=== PATIENT | male | born 1955 | race Caucasian/White ===

== ENCOUNTER 2021-11-21 06:01 | Inpatient (IN) | payer SELFPAY ==
[~2021-11-21] VITALS: Ht 175.3 cm; Wt 87.9 kg
--- NOTE | 2021-11-21 06:28 | ED Abdominal Pain ---
General Stated Complaint: KIDNEY INFECTION,SOB Source of Information: Patient Exam Limitations: No Limitations History of Present Illness Date Seen by Provider: November 21, 2021 Time Seen by Provider: 06:05 Initial Comments 66-year-old male with no pertinent past medical history coming in due to lower abdominal distention, pain, and difficulty urinating. He says he believes he has a kidney infection. This all started about 11 days ago, he presented to an urgent care on the , was diagnosed with a UTI and started on antibiotics. He says that helped for a few days, but that now it is worsening. He says his abdomen feels so full that he has a difficult time breathing. Denies any fever, chest pain, cough, weakness, numbness, rash, headache, vision changes, or any other concerns. He does endorse some dysuria and incontinence which is new for him. Had a normal bowel movement about a day ago and denies diarrhea. Allergies and Home Medications Allergies Coded Allergies: No Known Drug Allergies (Unverified , 11/21/21) Patient Home Medication List Home Medication List Reviewed: Yes Review of Systems Review of Systems Constitutional: No chills, No fever EENTM: No Blurred Vision Respiratory: Denies Cough Cardiovascular: Denies Chest Pain Gastrointestinal: Abdomen Distended; Denies Diarrhea, Denies Nausea, Denies Vomiting Genitourinary: Frequency, Incontinence, Pain Musculoskeletal: no symptoms reported Skin: no symptoms reported Psychiatric/Neurological: No Symptoms Reported Endocrine: No Symptoms Reported Hematologic/Lymphatic: No Symptoms Reported All Other Systems Reviewed Negative Unless Noted: Yes Past Udrxonz-Dqmjhx-Pkvbcx Hx Patient Social History Tobacco Use?: No Substance use?: No Alcohol Use?: Yes Alcohol type: Beer Alcohol Frequency: Once in a while Past Medical History Surgeries: No Physical Exam Vital Signs Vital Signs - First Documented 11/21/21 06:10 Temp 36.2 Pulse 137 Resp 26 B/P (MAP) 127/84 (98) Pulse Ox 95 Capillary Refill : Height/Weight/BMI Height: '" Weight: lbs. oz. kg; BMI Method: General Appearance: WD/WN, mild distress HEENT: PERRL/EOMI, normal ENT inspection, pharynx normal Neck: non-tender, full range of motion, supple, normal inspection Respiratory: chest non-tender, lungs clear, normal breath sounds, no respiratory distress, no accessory muscle use Cardiovascular: no murmur, tachycardia, other (1+ lower extremity edema) Gastrointestinal: normal bowel sounds; No guarding, No rebound; tenderness, other (fullness in the lower abdomen) Extremities: normal range of motion, non-tender, normal inspection, no calf tenderness, normal capillary refill, pedal edema Back: normal inspection, no CVA tenderness, no vertebral tenderness Neurologic/Psychiatric: no motor/sensory deficits, alert, normal mood/affect Skin: normal color, warm/dry Lymphatic: no adenopathy Focused Exam Lactate Level 11/21/21 06:30: Lactic Acid Level 4.75*H Lactic Acid Level Laboratory Tests Test 11/21/21 06:30 Lactic Acid Level 4.75 MMOL/L (0.50-2.00) *H Progress/Results/Core Measures Results/Orders Lab Results Laboratory Tests Test 11/21/21 06:30 11/21/21 06:35 Range/Units White Blood Count 31.8 *H 4.3-11.0 10^3/uL Red Blood Count 4.95 4.30-5.52 10^6/uL Hemoglobin 14.9 13.3-17.7 g/dL Hematocrit 40 40-54 % Mean Corpuscular Volume 82 80-99 fL Mean Corpuscular Hemoglobin 30 25-34 pg Mean Corpuscular Hemoglobin Concent 37 H 32-36 g/dL Red Cell Distribution Width 12.7 10.0-14.5 % Platelet Count 38 *L 130-400 10^3/uL Mean Platelet Volume 10.6 9.0-12.2 fL Immature Granulocyte % (Auto) 6 % Neutrophils (%) (Auto) 89 H 42-75 % Lymphocytes (%) (Auto) 2 L 12-44 % Monocytes (%) (Auto) 3 0-12 % Eosinophils (%) (Auto) 0 0-10 % Basophils (%) (Auto) 1 0-10 % Neutrophils # (Auto) 28.2 H 1.8-7.8 10^3/uL Lymphocytes # (Auto) 0.5 L 1.0-4.0 10^3/uL Monocytes # (Auto) 0.9 0.0-1.0 10^3/uL Eosinophils # (Auto) 0.0 0.0-0.3 10^3/uL Basophils # (Auto) 0.2 H 0.0-0.1 10^3/uL Immature Granulocyte # (Auto) 2.0 H 0.0-0.1 10^3/uL Neutrophils % (Manual) 70 % Lymphocytes % (Manual) 1 % Monocytes % (Manual) 2 % Eosinophils % (Manual) 0 % Basophils % (Manual) 0 % Metamyelocytes % 1 % Band Neutrophils 26 % Blood Morphology Comment NORMAL Prothrombin Time 16.4 H 12.2-14.7 SEC INR Comment 1.3 0.8-1.4 Activated Partial Thromboplast Time 39 H 24-35 SEC Sodium Level 129 L 135-145 MMOL/L Potassium Level 4.5 3.6-5.0 MMOL/L Chloride Level 92 L 98-107 MMOL/L Carbon Dioxide Level 10 L 21-32 MMOL/L Anion Gap 27 H 5-14 MMOL/L Blood Urea Nitrogen 131 *H 7-18 MG/DL Creatinine 15.01 H 0.60-1.30 MG/DL Estimat Glomerular Filtration Rate 3 BUN/Creatinine Ratio 8 Glucose Level 157 H 70-105 MG/DL Lactic Acid Level 4.75 *H 0.50-2.00 MMOL/L Calcium Level 7.9 L 8.5-10.1 MG/DL Corrected Calcium 8.5 8.5-10.1 MG/DL Total Bilirubin 1.1 H 0.1-1.0 MG/DL Aspartate Amino Transf (AST/SGOT) 17 5-34 U/L Alanine Aminotransferase (ALT/SGPT) 23 0-55 U/L Alkaline Phosphatase 198 H 40-136 U/L Total Protein 6.6 6.4-8.2 GM/DL Albumin 3.3 3.2-4.5 GM/DL Urine Color ORANGE Urine Clarity CLOUDY Urine pH 5.5 5-9 Urine Specific [place] 1.015 L 1.016-1.022 Urine Protein TRACE H NEGATIVE Urine Glucose (UA) NEGATIVE NEGATIVE Urine Ketones NEGATIVE NEGATIVE Urine Nitrite NEGATIVE NEGATIVE Urine Bilirubin NEGATIVE NEGATIVE Urine Urobilinogen 0.2 < = 1.0 MG/DL Urine Leukocyte Esterase 3+ H NEGATIVE Urine RBC (Auto) 3+ H NEGATIVE Urine RBC 10-25 H /HPF Urine WBC TNTC H /HPF Urine Squamous Epithelial Cells RARE /HPF Urine Crystals NONE /LPF Urine Bacteria LARGE H /HPF Urine Casts NONE /LPF Urine Mucus NEGATIVE /LPF Urine Culture Indicated CULTURE PENDING My Orders Orders - АННА VILLARREAL MD Cbc With Automated Diff (11/21/21 06:24) Comprehensive Metabolic Panel (11/21/21 06:24) Blood Culture (11/21/21 06:24) Urinalysis (11/21/21 06:24) Urine Culture (11/21/21 06:24) Protime With Inr (11/21/21 06:24) Partial Thromboplastin Time (11/21/21 06:24) Chest 1 View, Ap/Pa Only (11/21/21 06:24) Ed Iv/Invasive Line Start (11/21/21 06:24) Ed Iv/Invasive Line Start (11/21/21 06:24) Ekg Tracing (11/21/21 06:24) Vital Signs Adult Sepsis Patie Q15M (11/21/21 06:24) O2 (11/21/21 06:24) Remove Rings In Anticipation O (11/21/21 06:24) Lactic Acid Analyzer (11/21/21 06:24) Ns Iv 1000 Ml (Sodium Chloride 0.9%) (11/21/21 06:30) Manual Differential (11/21/21 06:30) Ns Iv 1000 Ml (Sodium Chloride 0.9%) (11/21/21 07:15) Ceftriaxone 1 Gm Pre-Mix (Rocephin 1 Gm (11/21/21 07:15) Arterial Blood Gas (11/21/21 07:27) Medications Given in ED Current Medications Medications Dose Ordered Sig/Richard Route Start Time Stop Time Status Last Admin Dose Admin Ceftriaxone Sodium/Dextrose 50 ml @ 100 mls/hr ONCE ONCE IV 11/21/21 07:15 11/21/21 07:44 DC 11/21/21 07:31 100 MLS/HR Sodium Chloride 2,523 ml @ 2,523 mls/hr ONCE ONCE IV 11/21/21 07:15 11/21/21 08:14 11/21/21 07:36 2,523 MLS/HR Vital Signs/I&O 11/21/21 06:10 Temp 36.2 Pulse 137 Resp 26 B/P (MAP) 127/84 (98) Pulse Ox 95 Progress Progress Note : Progress Note 66-year-old male with above history coming in due to lower abdominal pain with distention. ABCs were intact and vitals were stable on presentation except he was tachycardic to the 120s to 130s. Physical exam for like a full bladder. I did a [id number] ultrasound and it appeared he had roughly 2 L in his b ladder. We placed a Mendoza with good output and near complete resolution of his abdominal pain. The urine did come out cloudy and was concerning for infection. Lab significant for white count almost of 32, lactate around 4.7, creatinine around 15, normal potassium, bicarb of 10, low sodium and low platelets. Clinically he has pyelonephritis with severe sepsis. He will be admitted to the intensive care unit after discussing the case with Dr. Reynoso. He is having a good amount of urine out and we will replace that one-to-one with fluid going in. I have a high suspicion his creatinine will correct quickly given he had likely BPH causing the backup of urine causing all of this. Initial ECG Impression Date: November 21, 2021 Initial ECG Impression Time: 06:47 Initial ECG Rate: 127 Initial ECG Rhythm: S.Tach Comment Narrow QRS, left axis deviation with a left anterior fascicular block, no significant ST changes or T wave abnormalities Departure Impression Primary Impression: Pyelonephritis Additional Impressions: Severe sepsis REGINE (acute kidney injury) Hyponatremia Disposition: ADMITTED INPATIENT Condition: Stable Admissions Decision to Admit Reason: Admit from ER (General) Decision to Admit/Date: November 21, 2021 Time/Decision to Admit Time: 07:20 Departure-Patient Inst. Referrals: NO,LOCAL PHYSICIAN (PCP/Family) Primary Care Physician АННА VILLARREAL MD November 21, 2021 06:28
[2021-11-21] MEDS ORDERED: NS IV 1000 ML 1,000 ML IV SCH (06:30)
[2021-11-21 06:38] LABS: BILIRUBIN,URINE NEGATIVE (NEGATIVE); CLARITY,URINE CLOUDY; COLOR,URINE ORANGE; GLUCOSE, URINE (UA) NEGATIVE (NEGATIVE); KETONES,URINE NEGATIVE (NEGATIVE); LEUKOCYTE ESTERASE ,URINE 3+ (NEGATIVE); NITRITE,URINE NEGATIVE (NEGATIVE); PH,URINE 5.5 (5-9); PROTEIN,URINE TRACE (NEGATIVE)
[2021-11-21 06:55] LABS: BACTERIA,URINE LARGE /HPF; SQUAMOUS EPITHELIAL CELL,UR RARE /HPF; WBC,URINE TNTC /HPF
[2021-11-21 06:55] LABS: ALBUMIN 3.3 GM/DL (3.2-4.5)
[2021-11-21 06:56] LABS: BASOPHILS # (AUTO) 0.2 10^3/uL (0.0-0.1); BASOPHILS % (AUTO) 1 % (0-10); EOSINOPHILS % (AUTO) 0 % (0-10); HEMATOCRIT 40 % (40-54); HEMOGLOBIN 14.9 g/dL (13.3-17.7); INR 1.3 (0.8-1.4); LYMPHOCYTES # (AUTO) 0.5 10^3/uL (1.0-4.0); LYMPHOCYTES % (AUTO) 2 % (12-44); MEAN CORPUSCULAR HEMOGLOBIN 30 pg (25-34); MEAN CORPUSCULAR HGB CONC 37 g/dL (32-36); MEAN CORPUSCULAR VOLUME 82 fL (80-99); MEAN PLATELET VOLUME 10.6 fL (9.0-12.2); MONOCYTES # (AUTO) 0.9 10^3/uL (0.0-1.0); MONOCYTES % (AUTO) 3 % (0-12); NEUTROPHILS # (AUTO) 28.2 10^3/uL (1.8-7.8); NEUTROPHILS % (AUTO) 89 % (42-75); POTASSIUM 4.5 MMOL/L (3.6-5.0); PROTHROMBIN TIME PATIENT 16.4 SEC (12.2-14.7)
[2021-11-21 06:57] LABS: CALCIUM 7.9 MG/DL (8.5-10.1)
[2021-11-21 06:58] LABS: PLATELET COUNT 38 10^3/uL (130-400); TOTAL PROTEIN 6.6 GM/DL (6.4-8.2); WHITE BLOOD COUNT 31.8 10^3/uL (4.3-11.0)
[2021-11-21 07:00] LABS: BILIRUBIN,TOTAL 1.1 MG/DL (0.1-1.0)
[2021-11-21 07:02] LABS: CREATININE SERUM 15.01 MG/DL (0.60-1.30)
[2021-11-21] MEDS ORDERED: cefTRIAXone 1 GM PRE-MIX 50 ML IV ONE (07:15)
[2021-11-21] MEDS ORDERED: NS IV ONE (07:15)
[2021-11-21 07:17] LABS: BAND NEUTROPHILS 26 %; BASOPHILS % (MANUAL) 0 %; EOSINOPHILS % (MANUAL) 0 %; LYMPHOCYTES % (MANUAL) 1 %; METAMYELOCYTES % 1 %; MONOCYTES % (MANUAL) 2 %; NEUTROPHILS % (MANUAL) 70 %; RBC MORPH NORMAL
--- NOTE | 2021-11-21 08:09 | Diagnostic Imaging Report ---
Indication: Shortness of breath Portable chest 11:07 AM Heart size and pulmonary vascularity are normal. Lungs are clear. There are no effusions or pneumothoraces. IMPRESSION: No acute abnormalities in the chest Dictated by: Dictated on workstation # [id number]
--- NOTE | 2021-11-21 08:14 | History & Physical-Hospitalist ---
History of Present Illness HPI/Chief Complaint CC: Acute kidney injury HPI: This is a 66 yr old male who has no physician for the past 30 years. He presented with abdominal pain and found to have urinary retention and creatinine of 15. Potassium was good. He did have metabolic acidosis and criteria was met for severe sepsis due to pyelonephritis. He was placed on Rocephin and aggressive IV fluid with D5W with 3 amps of bicarb after I spoke with Dr. Ramos nephrology. Urinary output will be monitored with batres catheter. BMP will be checked every 4 hours. I will consult cardiology due to trigeminy on telemetry. Check echocardiogram. Renal ultrasound ordered. eICU appreciated. Source: patient Exam Limitations: no limitations Date Seen 11/21/21 Time Seen by a Provider: 10:00 Attending Physician No,Local Physician PCP Admitting Physician: Nadya Arredondo DO Attending Physician: Nadya Arredondo DO Referring Physician Date of Admission November 21, 2021 at 07:50 Home Medications & Allergies Home Medications Reviewed patient Home Medication Reconciliation performed by pharmacy medication reconciliations urinalysis technician and/or nursing. Patients Allergies have been reviewed. Allergies Allergies Coded Allergies No Known Drug Allergies (Unverified11/21/21) Past Trwhmpx-Erdwyi-Lrvigz Hx Patient Social History Marrital Status: single Employed/Student: unemployed Tobacco Use?: No Use of E-Cig and/or Vaping dev: No Substance use?: No Alcohol Use?: Yes Alcohol type: Beer Alcohol Frequency: Couple times a week Pt feels they are or have been: No Current Status Primary Language: Yi Preferred Spoken Language: Yi Review of Systems Constitutional: see HPI, malaise, weakness EENTM: no symptoms reported Respiratory: no symptoms reported Cardiovascular: no symptoms reported Gastrointestinal: abdominal pain Genitourinary: decreased output Musculoskeletal: no symptoms reported Skin: no symptoms reported Psychiatric/Neurological: No Symptoms Reported All Other Systems Reviewed Negative Unless Noted: Yes Physical Exam Physical Exam Vital Signs Vital Signs - First Documented 11/21/21 11/21/21 11/21/21 06:10 08:50 20:00 Temp 36.2 Pulse 137 Resp 26 B/P (MAP) 127/84 (98) Pulse Ox 95 O2 Delivery Room Air O2 Flow Rate 2.00 Capillary Refill : Less Than 3 Seconds Height, Weight, BMI Height: '" Weight: lbs. oz. kg; 27.00 BMI Method: General Appearance: No Apparent Distress, Anxious, Chronically ill Eyes: Right Eye Normal Inspection, Right Eye PERRL HEENT: PERRL/EOMI, Normal ENT Inspection, Pharynx Normal, Moist Mucous Membranes Neck: Full Range of Motion, Normal Inspection, Non Tender Respiratory: Chest Non Tender, Lungs Clear, Normal Breath Sounds, No Accessory Muscle Use, No Respiratory Distress Cardiovascular: Regular Rate, Rhythm, No Edema, No Gallop, No JVD, No Murmur, Normal Peripheral Pulses Gastrointestinal: Normal Bowel Sounds, No Organomegaly, No Pulsatile Mass, Non Tender, Soft Back: Normal Inspection, No CVA Tenderness, No Vertebral Tenderness Extremity: Normal Capillary Refill, Normal Inspection, Normal Range of Motion, Non Tender, No Calf Tenderness, No Pedal Edema Neurologic/Psychiatric: Alert, Oriented x3, No Motor/Sensory Deficits, Normal Mood/Affect Skin: Normal Color, Warm/Dry Lymphatic: No Adenopathy Results Results/Procedures Labs Laboratory Tests 11/21/21 06:30 11/21/21 11:40 11/21/21 20:10 Patient resulted labs reviewed. Assessment/Plan Admission Diagnosis Assessment: Acute kidney injury Obstructive uropathy status post Batres catheter removing 2000 cc of urine Acute pyelonephritis Severe sepsis Metabolic acidosis PVCs on telemetry consulting cardiology and obtaining echo Thrombocytopenia Leukocytosis Mild coagulopathy INR 1.3 Plan: D5W with 3 A of bicarb Aggressive fluid resuscitation Batres catheter Echo Cardiology Monitor creatinine closely Monitor potassium Admission Status: Inpatient Order (span 2 midnights) Reason for Inpatient Admission: Acute kidney injury with severe sepsis Diagnosis/Problems Diagnosis/Problems (1) Acute kidney injury (2) Thrombocytopenia (3) Ventricular premature complexes (4) Pyelonephritis Status: Acute (5) Severe sepsis Status: Acute (6) Hyponatremia Status: Acute NADYA ARREDONDO DO November 21, 2021 08:14
[2021-11-21 08:50] VITALS: BP 130/74
[2021-11-21] MEDS ORDERED: MELATONIN 3 MG TABLET PO PRN (09:00)
[2021-11-21] MEDS ORDERED: ONDANSETRON 4 MG (ZOFRAN) ORAL DISSOLVE TAB PO PRN (09:00)
[2021-11-21] MEDS ORDERED: diphenhydrAMINE 50 MG/ML INJ (BENADRYL) IVP PRN (09:00)
[2021-11-21] MEDS ORDERED: cefTRIAXone 1 GM PRE-MIX 50 ML IV SCH (09:00)
[2021-11-21] MEDS ORDERED: D5 NS IV SCH ×2 (09:00→09:45)
[2021-11-21] MEDS ORDERED: ONDANSETRON 4 MG/2 ML (SDV) Z0FRAN IV PRN (09:00)
[2021-11-21] MEDS ORDERED: BISACODYL 10 MG SUPP (DULCOLAX) PR PRN (09:00)
[2021-11-21] MEDS ORDERED: HYDROmorphone 2 MG/ML VIAL (DILAUDID) IVP PRN (09:00)
[2021-11-21] MEDS ORDERED: ACETAMINOPHEN 325 MG TABLET PO PRN (09:00)
[2021-11-21] MEDS ORDERED: MILK OF MAGNESIA 400 MG/5 ML 30 ML UDC PO PRN (09:00)
[2021-11-21] MEDS ORDERED: polyethylene glycoL POWDER 17 GM (MIRALAX) PACK PO PRN (09:00)
[2021-11-21] MEDS ORDERED: diphenhydrAMINE 25 MG TAB (BENADRYL) PO PRN (09:00)
[2021-11-21] MEDS ORDERED: CALCIUM CARBONATE 500 MG (TUMS) TAB.CHEW PO PRN (09:00)
[2021-11-21] MEDS ORDERED: ANTACID SUSP 30 ML UDC (MYLANTA) PO PRN (09:00)
[2021-11-21] MEDS ORDERED: SODIUM BICARBONATE IV SCH ×2 (09:00→09:45)
[2021-11-21] MEDS ORDERED: ALPRAZolam 0.25 MG (XANAX) TAB PO PRN (09:00)
--- NOTE | 2021-11-21 10:15 | Tele-ICU Consult ---
History of Present Illness History of Present Illness Date Seen by Provider: November 21, 2021 Time Seen by Provider: 10:15 Date of Admission (Tele-ICU Physician , consultation) Available chart/ vitals / labs / Images reviewed H&P is from ER notes Patient's information available about PMH, Shx, Fhx allergy reviewed in EMR. ROS as per chart and RN report Now in ICU, hemodynamically stable , sitting in bed having lunch Video assessment done using teleICU camera, rest of exam as per RN Discussed with RN. A/P Acute failure - ( obstructive component - 2 L in bladder befor batres ) - other etiology - REGINE / ?CKD - making urine - follow - BMP q 4 h - hydration - US renal - cont ABX - PCP in touch with nephrology in other facility - for possible transfer if needed Batres: + VTE Prophylaxis: SCD Stress Ulcer Prophylaxis: na Plans in collaboration with bedside consultants and IM MDs. Discussed with RN to reach out if any questions or concerns A total of 22 minutes of critical care time was devoted to this patient today, required to treat and/or prevent further deterioration of critical care condition ( as above ) . Allergies and Home Medications Allergies Coded Allergies: No Known Drug Allergies (Unverified , 11/21/21) Past Medical/Social/Family Hx Patient Social History Tobacco Use?: No Use of E-Cig and/or Vaping dev: No Substance use?: No Alcohol Use?: Yes Alcohol type: Beer Alcohol Frequency: Couple times a week Pt stated abuse/neglect: No Immunizations Up To Date Influenza Vaccine Up-to-Date: No; Not Current Current Status Advance Directives: No Communicates: Verbally Primary Language: Indian Preferred Spoken Language: Indian Is interpretation needed?: No Sensory deficits: Vision impairment Implanted or Applied Medical D: None Review of Systems Constitutional: see HPI Focused Exam Lactate Level 11/21/21 06:30: Lactic Acid Level 4.75*H 11/21/21 09:15: Lactic Acid Level 2.45*H Height, Weight, BMI Height: '" Weight: lbs. oz. kg; 27.33 BMI Method: Lactic Acid Level Laboratory Tests Test 11/21/21 06:30 11/21/21 09:15 Lactic Acid Level 4.75 MMOL/L (0.50-2.00) *H 2.45 MMOL/L (0.50-2.00) *H Exam Exam Patient acknowledged, consented, and participated in this virtual visit which was conducted using real time audio/video Vital Signs Date Time Temp Pulse Resp B/P (MAP) Pulse Ox O2 Delivery O2 Flow Rate FiO2 11/21/21 08:59 36.7 113 24 138/68 95 Room Air 11/21/21 08:50 113 22 130/74 96 Room Air 11/21/21 06:10 36.2 137 26 127/84 (98) 95 Height & Weight Height: '" Weight: lbs. oz. kg; 27.33 BMI Method: General Appearance: WD/WN Capillary Refill: Less Than 3 Seconds Gastrointestinal: normal bowel sounds; No guarding, No rebound; tenderness, other (fullness in the lower abdomen) Results Lab Laboratory Tests 11/21/21 06:30 Assessment/Plan Assessment/Plan ` DOLORES MCNEILL MD November 21, 2021 10:15
[2021-11-21] MEDS ORDERED: FAMO20TA5 PO (10:17)
[2021-11-21] MEDS: DOCUSATE SODIUM 100 MG (COLACE) CAP PO SCH ×2 (11:42→20:00)
[2021-11-21] MEDS: SENNOSIDES 8.6 MG (SENOKOT) TAB PO SCH ×2 (11:42→20:00)
--- NOTE | 2021-11-21 11:42 | Diagnostic Imaging Report ---
PROCEDURE: US Renal Bilateral. TECHNIQUE: Multiple real-time grayscale images were obtained over the kidneys in various projections bilaterally. INDICATION: Acute renal failure. Right kidney measures 10.7, the left 10.9 cm. Both kidneys showed normal volume, cortical thickness and parenchymal echotexture. Urinary bladder was nearly empty. No hydronephrosis. IMPRESSION: Normal sonographic appearance of the unobstructed kidneys. Nonfocal small volume bladder at the time of study. Dictated by: Dictated on workstation # [id number]
[2021-11-21 12:01] LABS: POTASSIUM 3.2 MMOL/L (3.6-5.0)
[2021-11-21 12:07] LABS: CREATININE SERUM 8.5 MG/DL (0.60-1.30)
[2021-11-21] MEDS: SODIUM BICARBONATE 8.4% SYR 150 MEQ in D5W 1000 ML IV SOLUTION 1,000 ML IV SCH ×2 (13:24→21:41)
--- NOTE | 2021-11-21 15:53 | Consultation-Cardiology ---
HPI-Cardiology Cardiology Consultation: Date of Consultation 11/21/21 Date of Admission 11/21/21 Attending Physician Susan,Local Physician Admitting Physician Admitting Physician: Nadya Reynoso DO Attending Physician: Nadya Reynoso DO Consulting Physician AURE FIGUEROA JR, MD HPI: Time Seen by a Provider: 15:53 Chief Complaint: REASON FOR CONSULTATION: Premature ventricular complexes. I had the pleasure of seeing Jason in the intensive care unit at [facility] in [place], [place] today. He has not seen a physician since the . For the past couple of years he has had some trouble urinating. He thought that his prostate might be enlarged. However, he did not seek medical attention. He was planning to wait until he turns 66 to get Medicare and then he would look for a doctor to check his prostate. Then about 10 days ago he started developing some lower abdominal cramping. He was having more trouble urinating. He went to urgent care and was diagnosed with a urinary tract infection and given some oral antibiotics. For the first few days he felt as though the symptoms were improving. However, then for the past couple of days, he has been having more trouble urinating and he was also feeling as though his throat was closing up on him. He was having difficulty swallowing. He was having trouble eating and drinking liquids due to this feeling in his throat. Then his urine output went down. This morning he became concerned and came to the emergency room for further evaluation. He was found to be in acute renal failure and was admitted to the intensive care unit. He denies any chest discomfort, dyspnea, paroxysmal nocturnal dyspnea or orthopnea. Sometimes he will get palpitations with a sensation of fast heartbeats but he feels as though this might be related to feeling anxious at times. He denies lightheadedness, syncope, or ankle edema. When he was admitted to the intensive care unit, he has some premature ventricular complexes and a cardiology consultation was requested. Certain portions of this document may have been dictated utilizing voice recognition technology. Inherent to this technology, typographical and grammatical errors may exist. As much as I am diligent to identify and correct these mistakes, some errors may remain in the document. Review of Systems-Cardiology Review of Systems Other comments Review of 10 organ systems is as per the history of present illness, otherwise negative. All Other Systems Reviewed Negative Unless Noted: Yes [id number] Hx Patient Social History Smoking Status: Never a Smoker Have you traveled recently?: No Alcohol Use?: Yes Pt feels they are or have been: No Past Medical History PMH As described under Assessment. Family Medical History Family Medical History: The patient does not know of any family history of premature coronary artery disease in first-degree relatives. Allergies and Home Medications Allergies Coded Allergies: No Known Drug Allergies (Unverified , 11/21/21) Patient Home Medication List Home Medication List Reviewed: Yes Famotidine (Famotidine) 20 Mg Tablet, 20 MG PO HS, (Reported) Entered as Reported by: JACE SALEH on 11/21/21 1017 Last Action: Continued Exam Vital Signs Vital Signs Date Time Temp Pulse Resp B/P (MAP) Pulse Ox O2 Delivery O2 Flow Rate FiO2 11/21/21 15:00 115 13 104/68 94 Room Air 11/21/21 08:59 36.7 Physical Exam General: Alert. No acute distress. Well nourished and appears stated age. Eye: Extraocular movements are intact. Conjunctivae are clear. There are no xanthelasma. HENT: Normocephalic. Atraumatic. Carotid pulsations 2/2 without bruits. Neck: Jugular venous pressure does not appear elevated. No thyromegaly appreciated. Respiratory: Lungs have some scattered rhonchi posteriorly. Respirations are non-labored. Breath sounds are equal. Symmetrical chest wall expansion. Cardiovascular: Normal rate. Regular rhythm. No murmur. No gallop. Point of maximal impulse is not appear displaced. Good pulses equal in all extremities. No edema. Gastrointestinal: Soft. Normal bowel sounds. Skin: Skin turgor is normal. There is no pallor. Musculoskeletal: No kyphosis or scoliosis appreciated. Neurologic: Alert and oriented to person, place, time. Cranial nerves 3-12 appear grossly intact. The patient has good motor tone strength in the upper and lower extremities bilaterally. Psychiatric: Cooperative. Appropriate mood & affect. Labs Laboratory Tests Test 11/21/21 06:30 11/21/21 06:35 11/21/21 09:15 11/21/21 11:40 Range/Units White Blood Count 31.8 *H 4.3-11.0 10^3/uL Red Blood Count 4.95 4.30-5.52 10^6/uL Hemoglobin 14.9 13.3-17.7 g/dL Hematocrit 40 40-54 % Mean Corpuscular Volume 82 80-99 fL Mean Corpuscular Hemoglobin 30 25-34 pg Mean Corpuscular Hemoglobin Concent 37 H 32-36 g/dL Red Cell Distribution Width 12.7 10.0-14.5 % Platelet Count 38 *L 130-400 10^3/uL Mean Platelet Volume 10.6 9.0-12.2 fL Immature Granulocyte % (Auto) 6 % Neutrophils (%) (Auto) 89 H 42-75 % Lymphocytes (%) (Auto) 2 L 12-44 % Monocytes (%) (Auto) 3 0-12 % Eosinophils (%) (Auto) 0 0-10 % Basophils (%) (Auto) 1 0-10 % Neutrophils # (Auto) 28.2 H 1.8-7.8 10^3/uL Lymphocytes # (Auto) 0.5 L 1.0-4.0 10^3/uL Monocytes # (Auto) 0.9 0.0-1.0 10^3/uL Eosinophils # (Auto) 0.0 0.0-0.3 10^3/uL Basophils # (Auto) 0.2 H 0.0-0.1 10^3/uL Immature Granulocyte # (Auto) 2.0 H 0.0-0.1 10^3/uL Neutrophils % (Manual) 70 % Lymphocytes % (Manual) 1 % Monocytes % (Manual) 2 % Eosinophils % (Manual) 0 % Basophils % (Manual) 0 % Metamyelocytes % 1 % Band Neutrophils 26 % Blood Morphology Comment NORMAL Prothrombin Time 16.4 H 12.2-14.7 SEC INR Comment 1.3 0.8-1.4 Activated Partial Thromboplast Time 39 H 24-35 SEC Sodium Level 129 L 137 135-145 MMOL/L Potassium Level 4.5 3.2 L 3.6-5.0 MMOL/L Chloride Level 92 L 103 98-107 MMOL/L Carbon Dioxide Level 10 L 14 L 21-32 MMOL/L Anion Gap 27 H 20 H 5-14 MMOL/L Blood Urea Nitrogen 131 *H 108 #*H 7-18 MG/DL Creatinine 15.01 H 8.50 #H 0.60-1.30 MG/DL Estimat Glomerular Filtration Rate 3 6 BUN/Creatinine Ratio 8 13 Glucose Level 157 H 258 H 70-105 MG/DL Lactic Acid Level 4.75 *H 2.45 *H 0.50-2.00 MMOL/L Calcium Level 7.9 L 7.0 L 8.5-10.1 MG/DL Corrected Calcium 8.5 8.5-10.1 MG/DL Total Bilirubin 1.1 H 0.1-1.0 MG/DL Aspartate Amino Transf (AST/SGOT) 17 5-34 U/L Alanine Aminotransferase (ALT/SGPT) 23 0-55 U/L Alkaline Phosphatase 198 H 40-136 U/L Total Protein 6.6 6.4-8.2 GM/DL Albumin 3.3 3.2-4.5 GM/DL Urine Color ORANGE Urine Clarity CLOUDY Urine pH 5.5 5-9 Urine Specific Thornton 1.015 L 1.016-1.022 Urine Protein TRACE H NEGATIVE Urine Glucose (UA) NEGATIVE NEGATIVE Urine Ketones NEGATIVE NEGATIVE Urine Nitrite NEGATIVE NEGATIVE Urine Bilirubin NEGATIVE NEGATIVE Urine Urobilinogen 0.2 < = 1.0 MG/DL Urine Leukocyte Esterase 3+ H NEGATIVE Urine RBC (Auto) 3+ H NEGATIVE Urine RBC 10-25 H /HPF Urine WBC TNTC H /HPF Urine Squamous Epithelial Cells RARE /HPF Urine Crystals NONE /LPF Urine Bacteria LARGE H /HPF Urine Casts NONE /LPF Urine Mucus NEGATIVE /LPF Urine Culture Indicated CULTURE PENDING Radiology ECHOCARDIOGRAM (11/21/2021): 1. This is a technically difficult study due to poor image quality secondary to patient's body habitus. 2. Left ventricle: The cavity size is normal. There is mild concentric hypertrophy. Systolic function is normal. The estimated ejection fraction is 55-60%. There is paradoxical septal motion consistent with an intraventricular conduction delay. The left ventricular diastolic function is indeterminate. 3. Pulmonary arteries: The estimated pulmonary artery systolic pressure is 31 mmHg assuming a right atrial pressure of 5 mmHg. ECG Impression ECG Comment Electrocardiogram from earlier this morning in the emergency room shows sinus tachycardia at 127 bpm with left anterior hemiblock. Diagnosis/Problems Diagnosis/Problems (1) Ventricular premature complexes Assessment & Plan: He is having some rare premature ventricular complexes on telemetry. He has a normal ejection fraction by echocardiogram outlined above. He may be having some ventricular ectopy due to his severe metabolic derangements. I suspect this will resolve as his renal failure resolves. I would just continue him on telemetry for the time being. No additional cardiac testing is indicated at this time. (2) Acute kidney injury Assessment & Plan: It sounds as though he may have developed obstructive uropathy although he does not have any evidence of hydronephrosis on his renal ultrasound. He now has a Mendoza in place and has been making a fair amount of urine with the intravenous fluids he has been receiving. Once he recovers from this acute issue, he will likely need urology consultation. This can probably be done as an outpatient. (3) Thrombocytopenia Assessment & Plan: Etiology unclear. This may be related to sepsis. This will need to be monitored closely. AURE FIGUEROA JR, MD November 21, 2021 15:53
[2021-11-21 17:04] LABS: CHLORIDE 102 MMOL/L (98-107); POTASSIUM 3.2 MMOL/L (3.6-5.0); SODIUM 135 MMOL/L (135-145)
[2021-11-21 17:06] LABS: GLUCOSE 260 MG/DL (70-105); TRIGLYCERIDES 209 MG/DL (<150); VLDL CHOLESTEROL 42 MG/DL (5-40)
[2021-11-21 17:07] LABS: CARBON DIOXIDE 12 MMOL/L (21-32)
[2021-11-21 17:09] LABS: CREATININE SERUM 8.52 MG/DL (0.60-1.30); GFR ESTIMATED 6
[2021-11-21 17:11] LABS: BUN/CREATININE RATIO 13; CHOLESTEROL 96 MG/DL (< 200)
[2021-11-21 17:12] LABS: HDL CHOLESTEROL < 15 MG/DL (40-60)
[2021-11-21 20:42] LABS: POTASSIUM 2.8 MMOL/L (3.6-5.0)
[2021-11-21 20:43] LABS: CALCIUM 7.3 MG/DL (8.5-10.1)
[2021-11-21 20:48] LABS: CREATININE SERUM 4.01 MG/DL (0.60-1.30)
[2021-11-21] MEDS ORDERED: FAMOTIDINE 20 MG (PEPCID) TABLET PO SCH (21:00)
[2021-11-21] MEDS ORDERED: KCL 20 MEQ TAB (K-DUR) PO ONE (21:00)
[2021-11-21] MEDS ORDERED: POTASSIUM CL 10MEQ/50ML IVPB 100 ML IV ONE (21:31)
[2021-11-21] MEDS: POTASSIUM CL 10MEQ/50ML IVPB 50 ML IV SCH ×2 (21:41→22:37)
[2021-11-22] MEDS ORDERED: meTOprolol 5 MG/5 ML (LOPRESSOR) VIAL IV ONE (00:30)
[2021-11-22] MEDS ORDERED: LACTATED RINGERS 1,000 ML IV SCH (00:30)
[2021-11-22] MEDS ORDERED: LACTATED RINGERS 1,000 ML IV ONE ×2 (00:34→00:45)
[2021-11-22] MEDS ORDERED: meTOprolol 5 MG/5 ML (LOPRESSOR) VIAL ONE (00:34)
[2021-11-22 05:48] LABS: EOSINOPHILS % (AUTO) 0 % (0-10); HEMOGLOBIN 11.3 g/dL (13.3-17.7); MONOCYTES % (AUTO) 3 % (0-12)
[2021-11-22 05:50] LABS: BASOPHILS # (AUTO) 0.1 10^3/uL (0.0-0.1); BASOPHILS % (AUTO) 1 % (0-10); HEMATOCRIT 32 % (40-54); LYMPHOCYTES # (AUTO) 0.7 10^3/uL (1.0-4.0); LYMPHOCYTES % (AUTO) 4 % (12-44); MEAN CORPUSCULAR HEMOGLOBIN 30 pg (25-34); MEAN CORPUSCULAR HGB CONC 36 g/dL (32-36); MEAN CORPUSCULAR VOLUME 83 fL (80-99); MEAN PLATELET VOLUME 12.1 fL (9.0-12.2); MONOCYTES # (AUTO) 0.6 10^3/uL (0.0-1.0); NEUTROPHILS % (AUTO) 92 % (42-75); WHITE BLOOD COUNT 17.5 10^3/uL (4.3-11.0)
[2021-11-22 05:57] LABS: PLATELET COUNT 28 10^3/uL (130-400)
[2021-11-22] MEDS: SODIUM BICARBONATE 8.4% SYR 150 MEQ in D5W 1000 ML IV SOLUTION 1,000 ML IV SCH (05:57)
[2021-11-22 06:03] LABS: ALBUMIN 2.3 GM/DL (3.2-4.5)
[2021-11-22 06:04] LABS: POTASSIUM 3.5 MMOL/L (3.6-5.0)
[2021-11-22 06:05] LABS: CALCIUM 7.3 MG/DL (8.5-10.1)
[2021-11-22 06:06] LABS: TOTAL PROTEIN 4.8 GM/DL (6.4-8.2)
[2021-11-22 06:08] LABS: BILIRUBIN,TOTAL 0.6 MG/DL (0.1-1.0)
[2021-11-22 06:09] LABS: PHOSPHORUS 2.6 MG/DL (2.3-4.7)
[2021-11-22 06:10] LABS: CREATININE SERUM 2.01 MG/DL (0.60-1.30)
[2021-11-22 06:12] LABS: MAGNESIUM 2.3 MG/DL (1.6-2.4)
--- NOTE | 2021-11-22 06:42 | Progress Note - Hospitalist ---
Subjective HPI/CC On Admission Date Seen by Provider: November 22, 2021 Time Seen by Provider: 09:30 CC: Acute kidney injury HPI: This is a 66 yr old male who has no physician for the past 30 years. He presented with abdominal pain and found to have urinary retention and creatinine of 15. Potassium was good. He did have metabolic acidosis and criteria was met for severe sepsis due to pyelonephritis. He was placed on Rocephin and aggressive IV fluid with D5W with 3 amps of bicarb after I spoke with Dr. Ramos nephrology. Urinary output will be monitored with batres catheter. BMP will be checked every 4 hours. I will consult cardiology due to trigeminy on telemetry. Check echocardiogram. Renal ultrasound ordered. eICU appreciated. Focused Exam Lactate Level 11/21/21 06:30: Lactic Acid Level 4.75*H 11/21/21 09:15: Lactic Acid Level 2.45*H 11/21/21 20:10: Lactic Acid Level 2.72*H Objective Exam Vital Signs Vital Signs Date Time Temp Pulse Resp B/P (MAP) Pulse Ox O2 Delivery O2 Flow Rate FiO2 11/22/21 09:00 113 35 109/68 94 Nasal Cannula 2.00 11/22/21 07:41 36.6 Capillary Refill : Less Than 3 Seconds Results/Procedures Lab Laboratory Tests 11/21/21 11:40 11/21/21 20:10 11/22/21 05:26 Patient resulted labs reviewed. Diagnosis/Problems Diagnosis/Problems (1) Acute kidney injury (2) Thrombocytopenia (3) Ventricular premature complexes (4) Pyelonephritis Status: Acute (5) Severe sepsis Status: Acute (6) Hyponatremia Status: Acute Clinical Quality Measures DVT/VTE Risk/Contraindication: Contraindications-Pharm: Other *list below* Other: low plts seymour KLEBER ARREDONDO DO November 22, 2021 06:42
--- NOTE | 2021-11-22 08:28 | Tele-ICU Progress Note ---
Progress Note video rounds completed 66 y/o male admitted with sepsis secondary to pyelonephritis and REGINE. Overall much improved. Pulse: 112 BP: 130/74 O2 sat 94 % on NC His BUN and creatinine have markedly improved CO2 is 29 Stop bicarb drip Focused Exam Lactate Level 11/21/21 06:30: Lactic Acid Level 4.75*H 11/21/21 09:15: Lactic Acid Level 2.45*H 11/21/21 20:10: Lactic Acid Level 2.72*H Height, Weight, BMI Height: '" Weight: lbs. oz. kg; 27.33 BMI Method: Labs Laboratory Tests 11/21/21 11:40 11/21/21 20:10 11/22/21 05:26 Results Labs Labs Laboratory Tests 11/21/21 09:15: Lactic Acid Level 2.45*H 11/21/21 11:40: Sodium Level 137, Potassium Level 3.2L, Chloride Level 103, Carbon Dioxide Level 14L, Anion Gap 20H, Blood Urea Nitrogen 108*H, Creatinine 8.50H, Estimat Glomerular Filtration Rate 6, BUN/Creatinine Ratio 13, Glucose Level 258H, Calcium Level 7.0L 11/21/21 20:10: Lactic Acid Level 2.72*H, Sodium Level 139, Potassium Level 2.8L, Chloride Level 99, Carbon Dioxide Level 23, Anion Gap 17H, Blood Urea Nitrogen 69H, Creatinine 4.01#H, Estimat Glomerular Filtration Rate 16, BUN/Creatinine Ratio 17, Glucose Level 212H, Calcium Level 7.3L, Magnesium Level 2.2 11/22/21 05:26: Sodium Level 143, Potassium Level 3.5L, Chloride Level 102, Carbon Dioxide Level 29, Anion Gap 12, Blood Urea Nitrogen 44H, Creatinine 2.01H, Estimat Glomerular Filtration Rate 36, BUN/Creatinine Ratio 22, Glucose Level 178H, Calcium Level 7.3L, Magnesium Level 2.3, White Blood Count 17.5H, Red Blood Count 3.82L, Hemo globin 11.3#L, Hematocrit 32L, Mean Corpuscular Volume 83, Mean Corpuscular Hemoglobin 30, Mean Corpuscular Hemoglobin Concent 36, Red Cell Distribution Width 12.7, Platelet Count 28*L, Mean Platelet Volume 12.1, Immature Granulocyte % (Auto) 0, Neutrophils (%) (Auto) 92H, Lymphocytes (%) (Auto) 4L, Monocytes (%) (Auto) 3, Eosinophils (%) (Auto) 0, Basophils (%) (Auto) 1, Neutrophils # (Auto) 16.0H, Lymphocytes # (Auto) 0.7L, Monocytes # (Auto) 0.6, Eosinophils # (Auto) 0.0, Basophils # (Auto) 0.1, Immature Granulocyte # (Auto) 0.0, Percent Immature Platelet Fraction 5.7, Corrected Calcium 8.7, Phosphorus Level 2.6, Total Bilirubin 0.6, Aspartate Amino Transf (AST/SGOT) 26, Alanine Aminotransferase (ALT/SGPT) 28, Alkaline Phosphatase 99, Total Protein 4.8L, Albumin 2.3L Microbiology 11/21/21 Blood Culture - Preliminary, Resulted Escherichia coli 11/21/21 Urine Culture - Preliminary, Resulted Probable E.coli PILI ORTIZ MD November 22, 2021 08:28
[2021-11-22] MEDS: DOCUSATE SODIUM 100 MG (COLACE) CAP PO SCH (08:46)
[2021-11-22] MEDS: SENNOSIDES 8.6 MG (SENOKOT) TAB PO SCH (08:46)
[2021-11-22] MEDS ORDERED: cefTRIAXone 1 GM PRE-MIX 50 ML IV SCH (09:00)
--- NOTE | 2021-11-22 09:47 | Cardiology Progress Note ---
Progress Note-Cardiology Events since last exam Date Seen by Provider: November 22, 2021 Time Seen by Provider: 09:42 Events since last exam I was initially asked to see him for ventricular ectopy. He remains in the intensive care unit. Last evening he developed atrial fibrillation with a rapid ventricular rate. He was given some intravenous fluids and 1 dose of intravenous metoprolol and after about 1 hour of the atrial fibrillation converted to sinus tachycardia. He denies palpitations with this event. He denies shortness of breath but appears visibly tachypneic while speaking. He denies chest discomfort, syncope, or ankle edema. He is adamant that he wants to go home today. Certain portions of this document may have been dictated utilizing voice recognition technology. Inherent to this technology, typographical and grammatical errors may exist. As much as I am diligent to identify and correct these mistakes, some errors may remain in the document. Vitals Last set of Vitals Signs Vital Signs 11/22/21 11/22/21 07:41 08:00 Temp 36.6 Pulse 113 Resp 27 B/P (MAP) 127/69 Pulse Ox 94 O2 Delivery Nasal Cannula O2 Flow Rate 2.00 Labs Labs Laboratory Tests 11/21/21 11:40 11/21/21 20:10 11/22/21 05:26 Exam Vital Signs Vital Signs Date Time Temp Pulse Resp B/P (MAP) Pulse Ox O2 Delivery O2 Flow Rate FiO2 11/22/21 08:00 113 27 127/69 94 Nasal Cannula 2.00 11/22/21 07:41 36.6 Physical Exam General: Alert. He appears mildly tachypneic. Eye: No xanthelasma. HENT: Normocephalic. Neck: Jugular venous pressure does not appear elevated. Respiratory: Lungs are clear to auscultation. Respirations are non-labored. Breath sounds are equal. Symmetrical chest wall expansion. Cardiovascular: Tachycardia. Regular rhythm. No murmur. No gallop. No edema. Gastrointestinal: Soft. Normal bowel sounds. Skin: Warm. Dry. Neurologic: Alert and oriented to person, place, time. Cranial nerves 3-11 grossly intact. Psychiatric: Cooperative. Appropriate mood & affect. Labs Laboratory Tests Test 11/21/21 11:40 11/21/21 20:10 11/22/21 05:26 Range/Units Sodium Level 137 139 143 135-145 MMOL/L Potassium Level 3.2 L 2.8 L 3.5 L 3.6-5.0 MMOL/L Chloride Level 103 99 102 98-107 MMOL/L Carbon Dioxide Level 14 L 23 29 21-32 MMOL/L Anion Gap 20 H 17 H 12 5-14 MMOL/L Blood Urea Nitrogen 108 *H 69 H 44 H 7-18 MG/DL Creatinine 8.50 H 4.01 #H 2.01 H 0.60-1.30 MG/DL Estimat Glomerular Filtration Rate 6 16 36 BUN/Creatinine Ratio 13 17 22 Glucose Level 258 H 212 H 178 H 70-105 MG/DL Calcium Level 7.0 L 7.3 L 7.3 L 8.5-10.1 MG/DL Lactic Acid Level 2.72 *H 0.50-2.00 MMOL/L Magnesium Level 2.2 2.3 1.6-2.4 MG/DL White Blood Count 17.5 H 4.3-11.0 10^3/uL Red Blood Count 3.82 L 4.30-5.52 10^6/uL Hemoglobin 11.3 #L 13.3-17.7 g/dL Hematocrit 32 L 40-54 % Mean Corpuscular Volume 83 80-99 fL Mean Corpuscular Hemoglobin 30 25-34 pg Mean Corpuscular Hemoglobin Concent 36 32-36 g/dL Red Cell Distribution Width 12.7 10.0-14.5 % Platelet Count 28 *L 130-400 10^3/uL Mean Platelet Volume 12.1 9.0-12.2 fL Immature Granulocyte % (Auto) 0 % Neutrophils (%) (Auto) 92 H 42-75 % Lymphocytes (%) (Auto) 4 L 12-44 % Monocytes (%) (Auto) 3 0-12 % Eosinophils (%) (Auto) 0 0-10 % Basophils (%) (Auto) 1 0-10 % Neutrophils # (Auto) 16.0 H 1.8-7.8 10^3/uL Lymphocytes # (Auto) 0.7 L 1.0-4.0 10^3/uL Monocytes # (Auto) 0.6 0.0-1.0 10^3/uL Eosinophils # (Auto) 0.0 0.0-0.3 10^3/uL Basophils # (Auto) 0.1 0.0-0.1 10^3/uL Immature Granulocyte # (Auto) 0.0 0.0-0.1 10^3/uL Percent Immature Platelet Fraction 5.7 0.0-7.6 % Corrected Calcium 8.7 8.5-10.1 MG/DL Phosphorus Level 2.6 2.3-4.7 MG/DL Total Bilirubin 0.6 0.1-1.0 MG/DL Aspartate Amino Transf (AST/SGOT) 26 5-34 U/L Alanine Aminotransferase (ALT/SGPT) 28 0-55 U/L Alkaline Phosphatase 99 40-136 U/L Total Protein 4.8 L 6.4-8.2 GM/DL Albumin 2.3 L 3.2-4.5 GM/DL Diagnosis/Problems Diagnosis/Problems (1) Paroxysmal atrial fibrillation Assessment & Plan: He developed an episode of paroxysmal atrial fibrillation last evening. This has now resolved. This may have been brought on by his acute renal failure. I will start him on low-dose beta-antony. At this point in time, I do not see any urgent need to start him on oral anticoagulation unless he develops recurrent atrial fibrillation. He may need an ischemic evaluation following discharge. (2) Ventricular premature complexes Assessment & Plan: He is having some rare premature ventricular complexes on telemetry at the time of admission. He has a normal ejection fraction by echoca rdiogram on 11/21. He may be having some ventricular ectopy due to his severe metabolic derangements. The ventricular ectopy now seems to have improved. I will be starting him on beta-antony for the atrial fibrillation as above. (3) Acute kidney injury Assessment & Plan: It sounds as though he may have developed obstructive uropathy although he does not have any evidence of hydronephrosis on his renal ultrasound. He now has a Mendoza in place and has been making a fair amount of urine with the intravenous fluids he has been receiving. Once he recovers from this acute issue, he will likely need urology consultation. His creatinine has improved remarkably well. However, we do not know where his baseline will be. I encouraged him to stay in the hospital until we see where his baseline creatinine level ends up. (4) Thrombocytopenia Assessment & Plan: Etiology unclear. This may be related to sepsis. This will need to be monitored closely. The platelet count has dropped further as of 11/22 although some of this could have been delusional due to the intravenous fluids he received for the acute renal failure. I will take the liberty of ordering a hematology consult. However, this is a long holiday weekend and I am not sure they would be available. AURE FIGUEROA JR, MD November 22, 2021 09:47
[2021-11-22] MEDS ORDERED: TAMSULOSIN 0.4 MG (FLOMAX) CAP PO SCH (10:00)
[2021-11-22] MEDS ORDERED: BETHANECHOL 25 MG (URECHOLINE) TAB PO SCH (10:00)
[2021-11-22] MEDS ORDERED: BETH25TA2 PO (10:11)
[2021-11-22] MEDS ORDERED: CEFD300C3 PO (10:11)
[2021-11-22] MEDS ORDERED: TMSL.4C PO (10:11)
[2021-11-22] MEDS ORDERED: MTP25TSR PO (10:11)
--- NOTE | 2021-11-22 10:12 | Discharge Summary ---
Discharge Summary Hospital Course Was the Problem List Reviewed?: Yes Problems/Dx: (1) Paroxysmal atrial fibrillation (2) Ventricular premature complexes (3) Acute kidney injury (4) Thrombocytopenia Hospital Course Date of Admission: November 21, 2021 at 07:50 Admission Diagnosis : Family Physician/Provider: No,Local Physician Date of Discharge: 11/22/21 Discharge Diagnosis: Acute kidney injury, postobstructive uropathy, presumed BPH, severe sepsis due to pyelonephritis and E. coli bacteremia, left AGAINST MEDICAL ADVICE, severe metabolic acidosis Hospital Course: Patient had an aggressive hospital course after he was admitted with creatinine of 15 requiring consultation with nephrology who recommended D5W with 3 A of bicarb at 150 an hour which improved creatinine tremendously after Mendoza catheter placed removing 2000 cc of urine. E. coli bacteremia noted and creatinine improved to 2.0 but he had an episode of atrial fibrillation requiring cardiology consultation but then he abruptly made the decision that he was leaving AGAINST MEDICAL ADVICE so I attempted to primary counselor him with nursing staff and cardiology but he was adamant he was leaving so he left AGAINST MEDICAL ADVICE signing the papers but I did make a safe discharge and sent his medications including antibiotic into [facility] pharmacy. Labs and Pending Lab Test: Laboratory Tests 11/21/21 11:40: Sodium Level 137, Potassium Level 3.2L, Chloride Level 103, Carbon Dioxide Level 14L, Anion Gap 20H, Blood Urea Nitrogen 108*H, Creatinine 8.50H, Estimat Glomerular Filtration Rate 6, BUN/Creatinine Ratio 13, Glucose Level 258H, Calcium Level 7.0L 11/21/21 20:10: Sodium Level 139, Potassium Level 2.8L, Chloride Level 99, Carbon Dioxide Level 23, Anion Gap 17H, Blood Urea Nitrogen 69H, Creatinine 4.01#H, Estimat Glomerular Filtration Rate 16, BUN/Creatinine Ratio 17, Glucose Level 212H, Calcium Level 7.3L, Lactic Acid Level 2.72*H, Magnesium Level 2.2 11/22/21 05:26: Sodium Level 143, Potassium Level 3.5L, Chloride Level 102, Carbon Dioxide Level 29, Anion Gap 12, Blood Urea Nitrogen 44H, Creatinine 2.01H, Estimat Glomerular Filtration Rate 36, BUN/Creatinine Ratio 22, Glucose Level 178H, Calcium Level 7.3L, Magnesium Level 2.3, White Blood Count 17.5H, Red Blood Count 3.82L, Hemoglobin 11.3#L, Hematocrit 32L, Mean Corpuscular Volume 83, Mean Corpuscular Hemoglobin 30, Mean Corpuscular Hemoglobin Concent 36, Red Cell Distribution Width 12.7, Platelet Count 28*L, Mean Platelet Volume 12.1, Immature Granulocyte % (Auto) 0, Neutrophils (%) (Auto) 92H, Lymphocytes (%) (Auto) 4L, Monocytes (%) (Auto) 3, Eosinophils (%) (Auto) 0, Basophils (%) (Auto) 1, Neutrophils # (Auto) 16.0H, Lymphocytes # (Auto) 0.7L, Monocytes # (Auto) 0.6, Eosinophils # (Auto) 0.0, Basophils # (Auto) 0.1, Immature Granulocyte # (Auto) 0.0, Percent Immature Platelet Fraction 5.7, Corrected Calcium 8.7, Phosphorus Level 2.6, Total Bilirubin 0.6, Aspartate Amino Transf (AST/SGOT) 26, Alanine Aminotransferase (ALT/SGPT) 28, Alkaline Phosphatase 99, Total Protein 4.8L, Albumin 2.3L Microbiology 11/21/21 Blood Culture - Preliminary, Resulted Escherichia coli 11/21/21 Urine Culture - Preliminary, Resulted Probable E.coli Home Meds Active Reported Famotidine 20 Mg Tablet 20 Mg PO HS Assessment/Pt Instructions Left AMA Discharge Planning: <30 minutes discharge planning Discharge Instructions Discharge Diet: No Restrictions Discharge Physical Examination Vital Signs Vital Signs Date Time Temp Pulse Resp B/P (MAP) Pulse Ox O2 Delivery O2 Flow Rate FiO2 11/22/21 09:00 113 35 109/68 94 Nasal Cannula 2.00 11/22/21 07:41 36.6 General Appearance: No Apparent Distress, WD/WN, Chronically ill Neurologic/Psychiatric: Alert, Oriented x3, No Motor/Sensory Deficits, Normal Mood/Affect Allergies: Coded Allergies: No Known Drug Allergies (Unverified , 11/21/21) Discharge Summary Date of Admission November 21, 2021 at 07:50 Date of Discharge Discharge Date: November 22, 2021 Admission Diagnosis Assessment: Acute kidney injury Obstructive uropathy status post Mendoza catheter removing 2000 cc of urine Acute pyelonephritis Severe sepsis Metabolic acidosis PVCs on telemetry consulting cardiology and obtaining echo Thrombocytopenia Leukocytosis Mild coagulopathy INR 1.3 Plan: D5W with 3 A of bicarb Aggressive fluid resuscitation Mendoza catheter Echo Cardiology Monitor creatinine closely Monitor potassium Discharge Diagnosis (1) Paroxysmal atrial fibrillation Assessment & Plan: He developed an episode of paroxysmal atrial fibrillation last evening. This has now resolved. This may have been brought on by his acute renal failure. I will start him on low-dose beta-antony. At this point in time, I do not see any urgent need to start him on oral anticoagulation unless he develops recurrent atrial fibrillation. He may need an ischemic evaluation following discharge. (2) Ventricular premature complexes Assessment & Plan: He is having some rare premature ventricular complexes on telemetry at the time of admission. He has a normal ejection fraction by echocardiogram on 11/21. He may be having some ventricular ectopy due to his severe metabolic derangements. The ventricular ectopy now seems to have improved. I will be starting him on beta-antony for the atrial fibrillation as above. (3) Acute kidney injury Assessment & Plan: It sounds as though he may have developed obstructive uropathy although he does not have any evidence of hydronephrosis on his renal ultrasound. He now has a Mendoza in place and has been making a fair amount of urine with the intravenous fluids he has been receiving. Once he recovers from this acute issue, he will likely need urology consultation. His creatinine has improved remarkably well. However, we do not know where his baseline will be. I encouraged him to stay in the hospital until we see where his baseline creatinine level ends up. (4) Thrombocytopenia Assessment & Plan: Etiology unclear. This may be related to sepsis. This will need to be monitored closely. The platelet count has dropped further as of 11/22 although some of this could have been delusional due to the intravenous fluids he received for the acute renal failure. I will take the liberty of ordering a hematology consult. However, this is a long holiday weekend and I am not sure they would be available. Clinical Quality Measures DVT/VTE Risk/Contraindication: Contraindications-Pharm: Other *list below* Other: low plts seymour KLEBER ARREDONDO DO November 22, 2021 10:12
== END 2021-11-22 11:10 | disposition left against medical advice (07) | DRG 872 ==
LOC: EDUNIT# 06:01 → ER 06:07 → ICU 07:50
PROVIDERS: ADMIT Internal Medicine; ATTEND Internal Medicine
DX: A41.9 Sepsis, unspecified organism (principal); N12 Tubulo-interstitial nephritis, not specified as acute or chronic; N17.9 Acute kidney failure, unspecified; E87.2 Acidosis; D68.9 Coagulation defect, unspecified; E87.1 Hypo-osmolality and hyponatremia; R65.20 Severe sepsis without septic shock; N13.9 Obstructive and reflux uropathy, unspecified; N40.0 Benign prostatic hyperplasia without lower urinary tract symptoms; I48.0 Paroxysmal atrial fibrillation; D69.6 Thrombocytopenia, unspecified; B96.20 Unspecified Escherichia coli [E. coli] as the cause of diseases classified elsewhere; I49.3 Ventricular premature depolarization; D72.829 Elevated white blood cell count, unspecified
CPT/HCPCS: 36415; 51702; 71045; 76770; 80048; 80053; 80061; 81000; 83036; 83605; 83735; 84100; 85007; 85025; 85027; 85610; 85730; 87040; 87077; 87088; 87186; 93005; 93306